=== PATIENT | male | born 1960 | race Caucasian/White ===

== ENCOUNTER 2017-01-04 04:51 | Inpatient (IN) | payer MEDICAID, OTHER ==
[~2017-01-04] VITALS: Ht 193 cm; Wt 140.6 kg
[2017-01-04] MEDS ORDERED: SODIUM CHLORIDE 0.9% 500 ML IVB ONE (06:24)
[2017-01-04] MEDS ORDERED: PANTOPRAZOLE SODIUM 40 MG/10 ML VIAL IV STA (06:24)
[2017-01-04] MEDS ORDERED: ONDANSETRON HCL 4 MG/2 ML VIAL IV ONE (06:30)
[2017-01-04] MEDS ORDERED: MORPHINE SULFATE 4 MG/ML SYRG IV ONE (06:30)
[2017-01-04 06:37] LABS: Basophils # (auto) 0.1 uL; Basophils % (auto) 0.7 % (0.0-2.0); Eosinophils # (auto) 0 uL; Eosinophils % (auto) 0.3 % (0.0-7.0); Hematocrit 43.2 % (41.0-53.0); Hemoglobin 14.4 g/dL (13.5-17.5); Mean Corpuscular Hemoglobin 29.4 pg (28.0-32.0); Mean Corpuscular Hgb Conc. 33.2 g/dL (32.0-36.0); Mean Corpuscular Volume 88.4 fL (80.0-100.0); Mean Platelet Volume 8.9 fL (7.4-10.4); Monocytes # (auto) 0.4 uL; Monocytes % (auto) 4.1 % (0.0-12.0); Neutrophils # (auto) 8.7 uL; Neutrophils % (auto) 84.9 % (37.0-80.0); Platelet Count (auto) 191 10^3/uL (140-450); White Blood Cell 10.3 10^3/uL (4.4-10.8)
[2017-01-04 06:50] LABS: Albumin 3.6 g/dL (3.4-5.0); Alkaline Phosphatase 73 U/L (45-117); Amylase 29 U/L (25-115); Anion Gap 10 (5-15); Aspartate Aminotransferase 20 U/L (15-37); BUN/Creatinine Ratio 17.7; Bilirubin, Total 0.5 mg/dL (0.2-1.0); Blood Urea Nitrogen 22 mg/dL (7-18); Calcium 8.6 mg/dL (8.5-10.1); Carbon Dioxide 27 mmol/L (21-32); Chloride 106 mmol/L (98-107); GFR African American 78 mL/min; GFR Non-African American 65 mL/min; Glucose 153 mg/dL (74-106); Potassium 4.3 mmol/L (3.5-5.1); Sodium 143 mmol/L (136-145); Total Protein 7.6 g/dL (6.4-8.2)
[2017-01-04] MEDS ORDERED: HYDROmorphone HCL 2 MG/ML VL IV ONE (07:45)
[2017-01-04 08:23] LABS: Urine Bilirubin Negative (Negative); Urine Blood Negative /uL (Negative); Urine Color Yellow (Yellow); Urine Glucose 1+ mg/dL (Normal); Urine Ketone 2+ (Negative); Urine Mucus FEW (None Seen); Urine Nitrite Negative (Negative); Urine RBC 4 /hpf (0 - 3); Urine Squamous Epithelial Cell FEW /hpf (<5); Urine pH 6.5 (5.0-8.0)
[2017-01-04] MEDS ORDERED: LORazepam 0.5 MG TAB PO PRN (09:00)
[2017-01-04] MEDS ORDERED: PROCHLORPERAZINE EDISYLATE 5 MG/ML 2ML VIAL IV PRN (09:00)
[2017-01-04] MEDS ORDERED: ACETAMINOPHEN 500 MG TAB PO PRN (09:00)
[2017-01-04] MEDS ORDERED: TEMAZEPAM 15 MG CAP PO PRN (09:00)
[2017-01-04] MEDS ORDERED: DEXTROSE (50%) 50ML SYRG IV PRN (09:00)
[2017-01-04] MEDS: SODIUM CHLORIDE 0.9% 1,000 ML IV SCH ×2 (09:07→19:34)
[2017-01-04] MEDS: ENOXAPARIN SOD 40 MG/0.4 ML SYRINGE SC SCH (09:09)
[2017-01-04] MEDS ORDERED: cefTRIAXone 1GM/50ML D5W 50 ML IV ONE (09:15)
[2017-01-04 09:51] LABS: INR 0.99 (0.9-1.15); Partial Thromboplastin Time 26.3 sec (22.64-33.71); Prothrombin Time 10.7 sec (9.37-12.3)
[2017-01-04 10:56] VITALS: BP 163/86
[2017-01-04 11:58] VITALS: BP 140/78
[2017-01-04] MEDS: metroNIDAZOLE 500MG/100ML 100 ML IV SCH ×3 (12:00→23:50)
[2017-01-04] MEDS: ACCU-CHEK COMFORT CURVE STRIP VI SCH ×2 (12:00→18:00)
[2017-01-04] MEDS: MORPHINE SULF INJ 2 MG/ML SYRINGE 1ML IV PRN ×2 (15:22→21:25)
[2017-01-04 16:47] VITALS: BP 128/85
[2017-01-04 20:00] VITALS: BP 158/90
[2017-01-04 22:00] VITALS: BP 158/90
[2017-01-04] MEDS ORDERED: QUET50TA PO (23:25)
[2017-01-04] MEDS ORDERED: ESCI10TA PO (23:29)
[2017-01-05] MEDS: ACCU-CHEK COMFORT CURVE STRIP VI SCH ×4 (00:16→18:09)
[2017-01-05] MEDS: SODIUM CHLORIDE 0.9% 1,000 ML IV SCH ×2 (04:54→13:42)
[2017-01-05 05:33] LABS: Basophils # (auto) 0 uL; Basophils % (auto) 0.3 % (0.0-2.0); Eosinophils # (auto) 0.1 uL; Eosinophils % (auto) 1.2 % (0.0-7.0); Hematocrit 42.2 % (41.0-53.0); Hemoglobin 13.7 g/dL (13.5-17.5); Lymphocytes # (auto) 1.4 uL; Lymphocytes % (auto) 13.7 % (10.0-50.0); Mean Corpuscular Hgb Conc. 32.5 g/dL (32.0-36.0); Mean Platelet Volume 8.5 fL (7.4-10.4); Monocytes # (auto) 1.2 uL; Neutrophils # (auto) 7.5 uL; Neutrophils % (auto) 72.8 % (37.0-80.0); Platelet Count (auto) 181 10^3/uL (140-450); Red Cell Distribution Width 14.9 % (11.6-16.0); White Blood Cell 10.3 10^3/uL (4.4-10.8)
[2017-01-05] MEDS: MORPHINE SULF INJ 2 MG/ML SYRINGE 1ML IV PRN (05:49)
[2017-01-05 05:50] LABS: Albumin 3.1 g/dL (3.4-5.0); BUN/Creatinine Ratio 11.5; Bilirubin, Total 0.8 mg/dL (0.2-1.0); Potassium 4.8 mmol/L (3.5-5.1); Total Protein 6.6 g/dL (6.4-8.2)
[2017-01-05] MEDS: metroNIDAZOLE 500MG/100ML 100 ML IV SCH ×3 (05:50→18:09)
[2017-01-05 06:00] VITALS: BP 136/75
[2017-01-05 07:03] VITALS: BP_SYST 124; BP_SYST 136; BP_DIAS 75; BP_DIAS 78
[2017-01-05 08:00] VITALS: BP 136/75
[2017-01-05] MEDS: ENOXAPARIN SOD 40 MG/0.4 ML SYRINGE SC SCH (10:00)
[2017-01-05 11:29] VITALS: BP 153/84
[2017-01-05] MEDS: cefTRIAXone 1GM/50ML D5W 50 ML IV SCH (11:32)
[2017-01-05] MEDS: HYDROcodone-ACET 5/325MG TAB PO PRN ×2 (11:34→20:32)
[2017-01-05] MEDS ORDERED: MORPHINE SULF INJ 2 MG/ML SYRINGE 1ML IV ONE (15:45)
[2017-01-05 16:58] VITALS: BP 158/83
[2017-01-05] MEDS ORDERED: LOSA50TA6 PO (18:11)
[2017-01-05] MEDS ORDERED: DIVA250T3 PO (18:11)
[2017-01-05 22:00] VITALS: BP 141/84
[2017-01-06] MEDS: metroNIDAZOLE 500MG/100ML 100 ML IV SCH ×4 (00:16→17:25)
[2017-01-06] MEDS: ACCU-CHEK COMFORT CURVE STRIP VI SCH ×2 (00:16→06:00)
[2017-01-06 05:30] VITALS: BP 113/73
[2017-01-06] MEDS: SODIUM CHLORIDE 0.9% 1,000 ML IV SCH ×3 (06:00→20:54)
[2017-01-06] MEDS: HYDROcodone-ACET 5/325MG TAB PO PRN ×2 (06:42→17:26)
[2017-01-06 08:00] VITALS: BP 128/85
[2017-01-06 09:00] VITALS: BP_SYST 128; BP_DIAS 76; BP_DIAS 85
[2017-01-06] MEDS: ENOXAPARIN SOD 40 MG/0.4 ML SYRINGE SC SCH (10:00)
[2017-01-06] MEDS ORDERED: escitalopram 20mg tablet PO SCH (12:00)
[2017-01-06 12:09] LABS: Basophils # (auto) 0.1 uL; Basophils % (auto) 0.6 % (0.0-2.0); Eosinophils # (auto) 0.1 uL; Eosinophils % (auto) 1.1 % (0.0-7.0); Hematocrit 42.3 % (41.0-53.0); Hemoglobin 13.9 g/dL (13.5-17.5); Lymphocytes # (auto) 1.2 uL; Lymphocytes % (auto) 13.4 % (10.0-50.0); Mean Corpuscular Hemoglobin 29.2 pg (28.0-32.0); Mean Corpuscular Hgb Conc. 32.9 g/dL (32.0-36.0); Mean Corpuscular Volume 88.8 fL (80.0-100.0); Mean Platelet Volume 8.4 fL (7.4-10.4); Monocytes % (auto) 10.9 % (0.0-12.0); Neutrophils # (auto) 6.8 uL; Platelet Count (auto) 190 10^3/uL (140-450); Red Cell Distribution Width 14.5 % (11.6-16.0); White Blood Cell 9.3 10^3/uL (4.4-10.8)
[2017-01-06] MEDS: cefTRIAXone 1GM/50ML D5W 50 ML IV SCH (12:22)
[2017-01-06 13:00] VITALS: BP 121/64
[2017-01-06 17:26] VITALS: BP 121/67
[2017-01-06 22:00] VITALS: BP 124/75
[2017-01-06] MEDS: QUEtiapine FUMARATE 100 MG TAB PO SCH (22:26)
[2017-01-07] VITALS (7 sets, daily range): BP systolic 95–131; BP diastolic 54–85
[2017-01-07] MEDS: metroNIDAZOLE 500MG/100ML 100 ML IV SCH ×5 (00:03→23:44)
[2017-01-07] MEDS: HYDROcodone-ACET 5/325MG TAB PO PRN ×2 (05:24→17:24)
[2017-01-07] MEDS: SODIUM CHLORIDE 0.9% 1,000 ML IV SCH ×2 (05:24→17:24)
[2017-01-07 06:49] LABS: Calcium 7.5 mg/dL (8.5-10.1); Potassium 3.7 mmol/L (3.5-5.1)
[2017-01-07] MEDS ORDERED: PATIENTS OWN MEDICATION PO SCH ×2 (10:00)
[2017-01-07] MEDS ORDERED: escitalopram 20mg tablet PO SCH (10:00)
[2017-01-07] MEDS: cefTRIAXone 1GM/50ML D5W 50 ML IV SCH (11:20)
[2017-01-07] MEDS: LOSARTAN POTASSIUM 50 MG TAB PO SCH (14:35)
[2017-01-07] MEDS: QUEtiapine FUMARATE 100 MG TAB PO SCH (22:20)
[2017-01-08] VITALS (7 sets, daily range): BP systolic 110–146; BP diastolic 61–87
[2017-01-08] MEDS: SODIUM CHLORIDE 0.9% 1,000 ML IV SCH (05:30)
[2017-01-08] MEDS: metroNIDAZOLE 500MG/100ML 100 ML IV SCH ×4 (05:30→23:54)
[2017-01-08] MEDS: cefTRIAXone 1GM/50ML D5W 50 ML IV SCH (09:28)
[2017-01-08] MEDS: LOSARTAN POTASSIUM 50 MG TAB PO SCH (10:00)
[2017-01-08] MEDS ORDERED: MEPERIDINE HCL (50 MG/ML) 1 ML VIAL ONE (10:10)
[2017-01-08] MEDS ORDERED: fentaNYL CITRATE 100 MCG/2 ML VL ONE (10:10)
[2017-01-08] MEDS ORDERED: MIDAZOLAM HCL 1MG/1ML-2 ML VIAL ONE (10:10)
[2017-01-08] MEDS ORDERED: ROCURONIUM 10MG/ML 10ML VIAL IV ONE (10:11)
[2017-01-08] MEDS ORDERED: BUPIVACAINE 0.25% INJ 50ML VIAL ONE (10:11)
[2017-01-08] MEDS ORDERED: KETOROLAC TROMETH 30 MG/ML 1ML VIAL IV ONE (10:30)
[2017-01-08] MEDS ORDERED: SOD CHL 0.9%/ KCL 20MEQ 1,000 ML IV SCH (10:30)
[2017-01-08] MEDS ORDERED: METOCLOPRAMIDE HCL 5MG/ml INJ 2ml VIAL IV ONE (10:30)
[2017-01-08] MEDS ORDERED: GLYCOPYRROLATE 0.2 MG/ML 1ML VIAL ONE (11:13)
[2017-01-08] MEDS ORDERED: KETOROLAC TROMETH 60MG/2ML VIAL IM ONE (11:13)
[2017-01-08] MEDS ORDERED: NEOSTIGMINE 1 MG/ML INJ (10mg/10ML VIAL) ONE (11:13)
[2017-01-08] MEDS: HYDROmorphone HCL 2 MG/ML VL IV PRN ×3 (12:48→13:08)
[2017-01-08] MEDS: QUEtiapine FUMARATE 100 MG TAB PO SCH (21:58)
[2017-01-08] MEDS: HYDROcodone-ACET 5/325MG TAB PO PRN (22:04)
[2017-01-09 05:15] VITALS: BP 124/72
[2017-01-09] MEDS: metroNIDAZOLE 500MG/100ML 100 ML IV SCH (05:33)
[2017-01-09] MEDS: HYDROcodone-ACET 5/325MG TAB PO PRN (05:39)
[2017-01-09 08:00] VITALS: BP 110/65
[2017-01-09 09:00] VITALS: BP 110/65
[2017-01-09 09:31] LABS: Albumin 2.5 g/dL (3.4-5.0); Bilirubin, Total 0.4 mg/dL (0.2-1.0); Total Protein 6.1 g/dL (6.4-8.2)
[2017-01-09] MEDS ORDERED: CIPROFLOXACIN HCL 500 MG TAB PO SCH (10:00)
[2017-01-09 10:20] VITALS: BP 124/72
[2017-01-09] MEDS: LOSARTAN POTASSIUM 50 MG TAB PO SCH (10:34)
[2017-01-09 13:00] VITALS: BP 101/61
[2017-01-09] MEDS ORDERED: metroNIDAZOLE 500 MG TAB PO SCH (14:00)
== END 2017-01-09 14:40 | disposition home or self-care (01) | DRG 263 ==
LOC: EDBD 04:51 → ER 05:00 → OVERFLOW 05:01 → WEST WING 10:42
PROVIDERS: ADMIT Internal Medicine; ATTEND Internal Medicine
PROC: 5A09357 Assistance with Respiratory Ventilation, Less than 24 Consecutive Hours, Continuous Positive Airway Pressure (ICD-10-PCS; principal; 2017-01-04)
PROC: 0DNW4ZZ Release Peritoneum, Percutaneous Endoscopic Approach (ICD-10-PCS; 2017-01-08)
PROC: 0FT44ZZ Resection of Gallbladder, Percutaneous Endoscopic Approach (ICD-10-PCS; 2017-01-08)
PROC: 0W9F4ZZ Drainage of Abdominal Wall, Percutaneous Endoscopic Approach (ICD-10-PCS; 2017-01-08)
DX: K80.00 Calculus of gallbladder with acute cholecystitis without obstruction (principal); K65.1 Peritoneal abscess; E66.01 Morbid (severe) obesity due to excess calories; N20.0 Calculus of kidney; I10 Essential (primary) hypertension; F84.0 Autistic disorder; K82.8 Other specified diseases of gallbladder; R73.9 Hyperglycemia, unspecified; E78.5 Hyperlipidemia, unspecified; K42.9 Umbilical hernia without obstruction or gangrene; F41.9 Anxiety disorder, unspecified; F32.9 Major depressive disorder, single episode, unspecified; G47.30 Sleep apnea, unspecified; K57.90 Diverticulosis of intestine, part unspecified, without perforation or abscess without bleeding; Z87.442 Personal history of urinary calculi; Z68.37 Body mass index [BMI] 37.0-37.9, adult
CPT/HCPCS: 36415; 71010; 74176; 76705; 78226; 80048; 80053; 80061; 81001; 82150; 82962; 83036; 83690; 84484; 85025; 85610; 85652; 85730; 86141; 93005; 94660; 94761; 96361; 96365; 96375; C9113; J0696; J1885; J2250; J2405; J3490